=== PATIENT | male | born 1965 | race Caucasian/White ===

== ENCOUNTER 2016-12-01 07:32 | Emergency (ER) | payer SELFPAY ==
[~2016-12-01] VITALS: Ht 165.1 cm; Wt 78.0 kg
[2016-12-01 07:34] VITALS: Ht 165.1 cm; Wt 78.0 kg
[2016-12-01] MEDS ORDERED: OXYC5CAP17 PO (08:15)
[2016-12-01] MEDS ORDERED: DOCU-144 PO (08:16)
--- NOTE | 2016-12-01 08:40 | ERD ---
ER Documentation Chief Complaint Date/Time DATE: 12/01/16 TIME: 08:34 Chief Complaint refill of pain meds, has fx right leg next appoiment on Patient is a 51 year old male who presents to the ED post op day 8 for tibial plateau fracture surgery at [facility]. He states that he has an appointment with his surgeon on 12/04/16 but is here for refill of his pain medications. He states that he has been taking tylenol #3 and oxycodone 5mg as prescribed. He states that he did not get a refill on one of his oxycodone and is requesting a refill until he sees his surgeon on Saturday. He denies any new onset symptoms. Denies fevers, chills, numbness, tingling. States that he has pain to his tibial plateau, no pain in his foot or hip. Denies abdominal pain, nausea, vomiting, diarrhea or constipation. Denies heaache, dizziness. No other complaints. ROS All systems reviewed and are negative except as per history of present illness. Medications Home Meds Active Scripts Docusate Sodium* (Colace*) 100 Mg Capsule, 100 MG PO TID, #30 CAP Prov:FILEMON GODINEZ PA-C 12/01/16 Oxycodone Hcl* (IR) (Oxycodone Hcl*) 5 Mg Capsule, 5 MG PO Q6 Y for PAIN, #16 TAB Prov:FILEMON GODINEZ PA-C 12/01/16 Allergies Allergies: Coded Allergies: No Known Allergy (Unverified , 12/01/16) PMhx/Soc Medical and Surgical Hx: pt denies Medical Hx History of Surgery: Yes (tibial plateau fracture surgery) Anesthesia Reaction: No Hx Neurological Disorder: No Hx Respiratory Disorders: No Hx Cardiac Disorders: No Hx Psychiatric Problems: No Hx Miscellaneous Medical Probl: No Hx Alcohol Use: Yes (socially) Hx Substance Use: No Hx Tobacco Use: No Smoking Status: Never smoker FmHx Family History: No coronary disease, No diabetes, No other Physical Exam Vitals Vital Signs Date Time Temp Pulse Resp B/P Pulse Ox O2 Delivery O2 Flow Rate FiO2 12/01/16 07:34 98.1 71 20 131/71 99 Physical Exam GENERAL: Well-developed, well-nourished male. Appears in no acute distress. NECK: Supple. No lymphadenopathy or thyromegaly. No meningismus. negative kernig. negative brudinski. LUNG: Clear to auscultation bilaterally. No rhonchi, wheezing, rales or coarse breath sounds. HEART: Regular rate and rhythm. No murmurs, rubs or gallops. Extremities: Equal pulses bilaterally. No peripheral clubbing, cyanosis or edema. No unilateral leg swelling. NEUROLOGIC: Alert and oriented, in wheelchair. Normal speech. Nonsteady steady gait. splint with knee immobilizer on right leg. SKIN: Normal color. Warm and dry. No rashes or lesions. Capillary refill < 2 seconds Procedures/MDM ER COURSE: I kept the patient and/or family informed of laboratory and diagnostic imaging results throughout the emergency room course. MEDICAL DECISION MAKING: This is a 51-year-old male who presents with a refill of pain medication after a tibial plateau fracture surgery.. Vital signs were reviewed. Patient is afebrile. Patient is not hypoxic. Patient is not toxic or ill-appearing. I consulted with Dr. Xiao regarding this patient in which pain medication to prescribe. Oxycodone 5 was given to patient enough until his appointment on Saturday. No suspicion for drug abuse on CURES report and no refills on CURES report. Low suspicion for septic joint, compartment syndrome, osteomyelitis, cellulitis, avascular necrosis, neurological injury, vascular injury. I did not examine the leg as it was in splint and in a long leg immobilizer brace. Patient did not have any complaints regarding his leg. DISCHARGE: At this time, patient is stable for discharge and outpatient management with no new complaints during the ER course. Patient was sent home with Colace and oxycodone. Patient will be discharged home with instructions to recheck for new or worsening symptoms such as fever, nausea, weakness, LOC and to follow up with primary care in the next 1-2 days. Patient was advised to return to the ER for any new or worsening symptoms. Plan was discussed and patient and/or family understands and agrees. Home instructions were given. Departure Diagnosis: Primary Impression: Encounter for medication refill Condition: Stable Patient Instructions: Taking Medicine Safely Referrals: DOCTOR,NOT ON STAFF (PCP) Additional Instructions: Llame al doctor CAMACHO y brandon dov NATHALIE PARA DENTRO DE 1-2 RUBIO.Dgale a la secretaria que nosotros le instruimos hacer esta nathalie.Avise o llame si lopez condicin se empeora antes de la nathalie. Regresa aqui si peor o no mejor. Sigue con lopez nathalie que tiene lunes a lopez doctor specialista FILEMON GODINEZ PA-C Dec 01, 2016 08:40 FILEMON GODINEZ PA-C Dec 01, 2016 08:40
== END 2016-12-01 08:42 | disposition home or self-care (01) ==
LOC: FTE 07:32
DX: Z76.0 Encounter for issue of repeat prescription (principal)
CPT/HCPCS: 99281